=== PATIENT | male | born 1945 | race Caucasian/White ===

== ENCOUNTER 2016-08-15 09:46 | Outpatient (CLI) | payer BC ==
[2016-08-15 11:00] LABS: Hemoglobin A1c 5.9 % (4.0-6.0)
[2016-08-15 11:06] LABS: ALT (SGPT) 26 U/L (0-55); AST (SGOT) 18 U/L (5-34); Alkaline Phosphatase 53 U/L (40-150); Anion Gap 12 mmol/L (10-20); BUN (Urea Nitrogen) 20 mg/dL (8.4-25.7); Bilirubin, Total 0.6 mg/dL (0.2-1.2); Calc. Creatinine Clearance 0 mL/min (70-130); Calcium 8.9 mg/dL (7.8-10.44); Carbon Dioxide 30 mmol/L (23-31); Chloride 107 mmol/L (98-107); Estimated GFR-MDRD 65; Globulin 2.8 g/dL (2.4-3.5); LDL Cholesterol, Calculated 106 mg/dL; Protein, Total 6.9 g/dL (5.8-8.1)
[2016-08-15 12:34] LABS: Albumin - Urine 10 mg/L (< 20 mg/L); Albumin/Creatinine Ratio LESS THAN 30 mg/g (< 30 mg/g); Creatinine, Urine 300 mg/dL (10-300mg/dL)
== END 2016-08-15 09:47 | disposition home or self-care (01) ==
LOC: NAV LAB 09:46
PROVIDERS: ATTEND Family Medicine
DX: E78.5 Hyperlipidemia, unspecified (principal); E11.9 Type 2 diabetes mellitus without complications; E03.9 Hypothyroidism, unspecified
CPT/HCPCS: 36415; 80053; 80061; 82044; 82570; 83036; 84443

== ENCOUNTER 2016-12-02 10:47 | Outpatient (CLI) | payer BC ==
[2016-12-02 11:37] LABS: ALT (SGPT) 25 U/L (8-55); AST (SGOT) 18 U/L (5-34); Alkaline Phosphatase 45 U/L (40-150); Anion Gap 16 mmol/L (10-20); BUN (Urea Nitrogen) 26 mg/dL (8.4-25.7); Bilirubin, Total 0.7 mg/dL (0.2-1.2); Calc. Creatinine Clearance 0 mL/min (70-130); Calcium 9.1 mg/dL (7.8-10.44); Carbon Dioxide 27 mmol/L (23-31); Chloride 106 mmol/L (98-107); Cholesterol 160 mg/dl (< 200 Desired); Estimated GFR-MDRD 61; Globulin 2.4 g/dL (2.4-3.5); Glucose 126 mg/dL (83-110); Potassium 4.6 mmol/L (3.5-5.1); Protein, Total 6.4 g/dL (5.8-8.1); Sodium 144 mmol/L (136-145); Triglycerides 80 mg/dL (Less than 150)
[2016-12-02 11:38] LABS: Cardiac Risk 4.3 (Less than 4.5); HDL Cholesterol 37 mg/dL (>60 Neg Risk); LDL Cholesterol, Calculated 107 mg/dL
[2016-12-02 19:05] LABS: Creatinine, Urine 99.29 mg/dL (63-166); Microalbumin Urine Less than 1.0 mg/dL (0.5-50.0); Microalbumin/Creat Ratio 10.1 mg/g (Less than 30)
== END 2016-12-02 10:48 | disposition home or self-care (01) ==
LOC: NAV LAB 10:47
PROVIDERS: ATTEND Internal Medicine
DX: E78.5 Hyperlipidemia, unspecified (principal); E11.9 Type 2 diabetes mellitus without complications
CPT/HCPCS: 36415; 80053; 80061; 82043; 83036

== ENCOUNTER 2017-05-07 18:19 | Inpatient (IN) | payer MEDICARE, BC ==
[2017-05-07] MEDS ORDERED: guaiFENesin 100 MG/5 ML UDCUP PO PRN (20:38)
[2017-05-07] MEDS ORDERED: HumaLOG 300 UNITS/3 ML VIAL SC SCH (21:00)
[2017-05-07] MEDS ORDERED: (Fluticasone Propionate [Flovent Diskus] 50 MCG) INH SCH (21:00)
[2017-05-07] MEDS ORDERED: HumaLOG 300 UNITS/3 ML VIAL SC PRN (21:11)
[2017-05-07] MEDS ORDERED: Dextrose 5% in Water 1,000 ML IV PRN (21:11)
[2017-05-07] MEDS ORDERED: Dextrose 50% Abboject 50 ML SYRINGE IVP PRN (21:12)
[2017-05-07] MEDS: Melatonin 3 MG TAB PO SCH (21:46)
[2017-05-07] MEDS: Lorazepam 1 MG TAB PO SCH (21:46)
[2017-05-07] MEDS: Famotidine 20 MG TAB PO SCH (21:46)
[2017-05-07] MEDS: Atorvastatin Calcium 10 MG TAB PO SCH (21:46)
[2017-05-08] MEDS: Levothyroxine Sodium 50 MCG TAB PO SCH (05:08)
[2017-05-08 05:11] LABS: #Basophils 0.1 thou/uL (0.0-0.2); #Eosinphils 0.5 thou/uL (0.0-0.7); #Lymphocytes 1.5 thou/uL (1.20-3.40); #Monocytes 0.8 thou/uL (0.11-0.59); %Basophils 0.7 % (0.0-1.0); %Lymphocytes 15.4 % (21.0-51.0); %Neutrophils 70.9 % (42.0-75.0); Hemoglobin 11.2 g/dL (14.0-18.0); Mean Corpuscular HGB CONC 31.8 g/dL (32.0-36.0); Mean Corpuscular Hemoglobin 31.2 pg (27.0-31.0); Mean Corpuscular Volume 98.2 fl (80.0-94.0); Mean Platelet Volume 6.7 fL (7.4-10.4); Platelet Count 262 thou/uL (130-400); RBC Distribution Width 12.4 % (11.5-14.5); Red Blood Cell (RBC) Count 3.59 mill/uL (4.70-6.10); White Blood Cell (WBC) Count 9.9 thou/uL (4.8-10.8)
[2017-05-08 05:29] LABS: BUN (Urea Nitrogen) 14 mg/dL (8.4-25.7); Calc. Creatinine Clearance 123 mL/min (70-130); Calcium 9.1 mg/dL (7.8-10.44); Estimated GFR-MDRD 77; Glucose 129 mg/dL (83-110)
[2017-05-08 05:33] LABS: Chloride 97 mmol/L (98-107); Potassium 3.9 mmol/L (3.5-5.1); Sodium 144 mmol/L (136-145)
[2017-05-08 06:26] LABS: Carbon Dioxide 35 mmol/L (23-31)
[2017-05-08 06:31] LABS: Anion Gap 14 mmol/L (10-20)
[2017-05-08] MEDS: metFORMIN 500 MG TAB PO SCH ×2 (09:16→17:26)
[2017-05-08] MEDS: Alogliptin Benzoate 25 MG TABLET PO SCH (09:16)
[2017-05-08] MEDS: Aspirin 81 mg Enteric Coated Tablet PO SCH (09:17)
[2017-05-08] MEDS: Multivitamin W/ Minerals 1 TAB PO SCH (09:18)
[2017-05-08] MEDS: Furosemide 40 MG TAB PO SCH (09:18)
[2017-05-08] MEDS: Finasteride 5 MG TAB PO SCH (09:18)
[2017-05-08] MEDS: Famotidine 20 MG TAB PO SCH ×2 (09:18→20:30)
[2017-05-08] MEDS: Enoxaparin Sodium 40 MG/0.4 ML SYRINGE SC SCH (09:19)
--- NOTE | 2017-05-08 09:24 | HP ---
CHIEF COMPLAINT: Status post coronary artery bypass grafting for physical therapy. BRIEF HISTORY: This is a 71-year-old male who was admitted to [facility] and underwent coronary artery bypass grafting x4 by Dr. Kiran on 04/29/2017. The patient did we ll and post-surgery was noticed to have hypercapnic respiratory failure during the weaning process. Chest x-ray showed pulmonary edema. He was treated with IV diuretics and managed by mechanical pipe tilation by pulmonary. He improved and was extubated. He was also noticed to have paroxysmal atria l fibrillation with RVR which was managed with amiodarone and currently he is in sinus rhythm. He h as been transferred here for therapy. Currently, he denies any chest pain or shortness of breath. He is on 2 liters of oxygen. He denies any fever or chills. He denies any paroxysmal nocturnal dys pnea or orthopnea. PAST MEDICAL HISTORY: 1. Coronary artery disease with recent coronary artery bypass grafting x4. 2. Dyslipidemia. 3. Hypertension. 4. Diabetes mellitus type 2. 5. Hypothyroidism. 6. Benign prostatic hypertrophy. PAST SURGICAL HISTORY: 1. Appendectomy. 2. Tonsillectomy. 3. Bilateral cataract extraction. 4. History of back surgery. 5. Knee surgery. 6. Cardiac catheterization. 7. Recent coronary artery bypass grafting. FAMILY HISTORY: Noncontributory to current admission. PSYCHOSOCIAL HISTORY: He quit smoking 35 years ago. Social alcohol intake, no IV drug abuse. He w as fairly active and independent. ALLERGIES GUAIFENESIN. CURRENT MEDICATIONS: He has been admitted here with the following medications: 1. Alogliptin 12.5 mg daily. 2. Amiodarone 200 mg b.i.d. 3. Ecotrin 81 mg daily. 4. Lipitor 10 mg daily. 5. Lovenox 40 mg daily. 6. Pepcid 20 mg b.i.d. 7. Finasteride 5 mg daily. 8. Lasix 40 mg daily. 9. Levothyroxine 50 mcg daily. 10. Lorazepam 1 mg daily. 11. Melatonin 3 mg at bedtime. 12. Metformin 500 mg b.i.d. 13. Asmanex inhaler 1 puff b.i.d. 14. Tramadol 50 mg q.6h. p.r.n. 15. He is also on guaifenesin and I will check with him as to the reaction. REVIEW OF SYSTEMS: CARDIOVASCULAR: Denies any chest pain, shortness of breath, palpitations, paroxysmal nocturnal dysp lurdes, orthopnea, pedal edema. RESPIRATORY: Denies any chronic cough, expectoration or pleuritic type chest pain. GASTROINTESTINAL: Denies any nausea, vomiting, diarrhea, constipation, hematemesis, melena, hematoc hezia. GENITOURINARY: Denies any frequency, urgency, dysuria or hematuria. LUBRICATION SUPERVISOR: No focal numbness, weakness, fainting spells. HEENT: No difficulty with speech, vision, hearing or swallowing. PHYSICAL EXAMINATION: GENERAL: Pleasant 71-year-old male resting comfortably in no acute distress. He responds appropriately to questions. He is alert, awake, and oriented x3. VITAL SIGNS: He is afebrile, heart rate 72, respirations 22, blood pressure 95/55, oxygen saturatio n is 94% on 2 liters. HEENT: Normocephalic, atraumatic. Pupils equal and reactive to light and accommodation. NECK: No JVD, thyromegaly, cervical adenopathy, throat exudates or carotid bruits. CARDIOVASCULAR: S1, S2 plus, rate and rhythm regular. Sternal incision is healing. RESPIRATORY: Normal vesicular breath sounds with decreased air entry in the bases, occasional crack les in the bases. ABDOMEN: Soft, nontender, bowel sounds heard in all quadrants. EXTREMITIES: Without cyanosis or clubbing. Trace edema. Peripheral pulses are palpable. LUBRICATION SUPERVISOR: Grossly nonfocal. LABORATORY VALUES: Done this morning shows a white count of 9.9, H\T\H is 11.2 and 35.3, sodium 144 , potassium 3.9, BUN and creatinine is 14 and 0.96. BNP is 286.8, blood sugar is 158. IMPRESSION: 1. Coronary artery disease status post coronary artery bypass graft x4. 2. Paroxysmal atrial fibrillation. 3. Diabetes mellitus type 2. 4. Hypertension. 5. Dyslipidemia. 6. Hypothyroidism. 7. Benign prostatic hypertrophy. PLAN: 1. Continue current medications. 2. Deep venous thrombosis prophylaxis with Lovenox. 3. Sternal incision care. 4. 1800 calorie heart healthy diet. 5. Accu-Cheks with sliding scale coverage. 6. Decubitus precautions. 7. Physical therapy evaluation and treat. 8. Routine laboratory values. 9. Monitor his heart rate and for any decompensation of heart failure. 10. Titrate oxygen. 11. Discussed with patient in detail and all questions answered.
[2017-05-08] MEDS: HumaLOG 300 UNITS/3 ML VIAL SC PRN (12:03)
[2017-05-08] MEDS: Mometasone Furoate 120 PUFF 220 MCG INH SCH (17:27)
[2017-05-08] MEDS: Atorvastatin Calcium 10 MG TAB PO SCH (20:29)
[2017-05-08] MEDS: Melatonin 3 MG TAB PO SCH (20:29)
[2017-05-08] MEDS: Lorazepam 1 MG TAB PO SCH (20:30)
[2017-05-08] MEDS ORDERED: FLU VACC QS2017-18 36 mo. & older 0.5 ML SYRINGE IM ONE (21:00)
[2017-05-09] MEDS: Levothyroxine Sodium 50 MCG TAB PO SCH (05:42)
[2017-05-09] MEDS: Mometasone Furoate 120 PUFF 220 MCG INH SCH ×2 (05:42→18:12)
[2017-05-09] MEDS: metFORMIN 500 MG TAB PO SCH ×2 (08:33→17:03)
[2017-05-09] MEDS: Finasteride 5 MG TAB PO SCH (08:33)
[2017-05-09] MEDS: Furosemide 40 MG TAB PO SCH (08:33)
[2017-05-09] MEDS: Famotidine 20 MG TAB PO SCH ×2 (08:33→21:39)
[2017-05-09] MEDS: Multivitamin W/ Minerals 1 TAB PO SCH (08:34)
[2017-05-09] MEDS: Alogliptin Benzoate 25 MG TABLET PO SCH (08:34)
[2017-05-09] MEDS: Aspirin 81 mg Enteric Coated Tablet PO SCH (08:34)
[2017-05-09] MEDS: Enoxaparin Sodium 40 MG/0.4 ML SYRINGE SC SCH (08:34)
--- NOTE | 2017-05-09 10:06 | PRG ---
DATE OF SERVICE: 05/09/2017 SUBJECTIVE: Mr. Drake is up, in the restroom shaving. He is still on 2 liters of oxygen. He denies any chest pain or shortness of breath. He states he slept great. Discussed with nursing and no co ncerns. OBJECTIVE: VITAL SIGNS: He is afebrile, heart rate 69, respirations 16, oxygen saturation is 96%, blood pressu re is 117/69. CARDIOVASCULAR SYSTEM: S1, S2 plus. RESPIRATORY SYSTEM: Normal vesicular breath sounds. ABDOMEN: Soft, nontender, bowel sounds heard in all quadrants. EXTREMITIES: Without cyanosis or clubbing. Trace edema. SKIN: Sternal incision is healing. His maculopapular rash in the back is pretty much scabbed over and resolving. The patient did confirm that he was allergic to guaifenesin, and so his guaifenesin prescription was removed from his medication list. IMPRESSION: 1. Coronary artery disease, status post coronary artery bypass graft. 2. Dyslipidemia. 3. Hypertension. 4. Diabetes mellitus, type 2. His blood sugars have been 197, 94, 136, and 109. 5. Hypothyroidism. 6. Benign prostatic hypertrophy. PLAN: 1. Continue current medications. 2. Titrate oxygen. 3. Physical therapy. 4. DVT and stress ulcer prophylaxis. 5. Right decubitus precautions. 6. Routine laboratory values. 7. A 1800 calorie heart healthy diet. Discussed with the patient in detail and all questions answered.
[2017-05-09] MEDS: traMADol HCl 50 MG TAB PO PRN (14:42)
[2017-05-09] MEDS: Lorazepam 1 MG TAB PO SCH (21:39)
[2017-05-09] MEDS: Atorvastatin Calcium 10 MG TAB PO SCH (21:39)
[2017-05-09] MEDS: Melatonin 3 MG TAB PO SCH (21:39)
[2017-05-10 05:06] LABS: #Basophils 0.1 thou/uL (0.0-0.2); #Eosinphils 0.5 thou/uL (0.0-0.7); #Monocytes 0.8 thou/uL (0.11-0.59); #Neutrophils 7.9 thou/uL (1.40-6.50); %Basophils 0.6 % (0.0-1.0); %Eosinophils 4.4 % (0.0-10.0); %Lymphocytes 14.9 % (21.0-51.0); %Monocytes 7.1 % (0.0-10.0); Hemoglobin 11.4 g/dL (14.0-18.0); Mean Corpuscular HGB CONC 31.8 g/dL (32.0-36.0); Mean Corpuscular Hemoglobin 31.6 pg (27.0-31.0); Mean Corpuscular Volume 99.4 fl (80.0-94.0); Mean Platelet Volume 5.5 fL (7.4-10.4); Platelet Count 247 thou/uL (130-400); RBC Distribution Width 12.7 % (11.5-14.5); Red Blood Cell (RBC) Count 3.61 mill/uL (4.70-6.10); White Blood Cell (WBC) Count 10.8 thou/uL (4.8-10.8)
[2017-05-10 05:09] LABS: #Lymphocytes 1.6 thou/uL (1.20-3.40)
[2017-05-10 05:10] LABS: PLT Morphology Comment Appears Adequate; RBC Morphology Normal
[2017-05-10 05:24] LABS: BUN (Urea Nitrogen) 13 mg/dL (8.4-25.7); Calc. Creatinine Clearance 112 mL/min (70-130); Calcium 9.1 mg/dL (7.8-10.44); Estimated GFR-MDRD 69; Glucose 118 mg/dL (83-110)
[2017-05-10 05:28] LABS: Chloride 96 mmol/L (98-107); Potassium 4.4 mmol/L (3.5-5.1); Sodium 144 mmol/L (136-145)
[2017-05-10 05:49] LABS: Carbon Dioxide 38 mmol/L (23-31)
[2017-05-10 05:55] LABS: Anion Gap 14 mmol/L (10-20)
[2017-05-10] MEDS: Mometasone Furoate 120 PUFF 220 MCG INH SCH ×2 (05:59→17:56)
[2017-05-10] MEDS: Levothyroxine Sodium 50 MCG TAB PO SCH (06:00)
[2017-05-10] MEDS: Famotidine 20 MG TAB PO SCH ×2 (08:41→21:22)
[2017-05-10] MEDS: Multivitamin W/ Minerals 1 TAB PO SCH (08:41)
[2017-05-10] MEDS: metFORMIN 500 MG TAB PO SCH ×2 (08:41→17:55)
[2017-05-10] MEDS: Finasteride 5 MG TAB PO SCH (08:42)
[2017-05-10] MEDS: Alogliptin Benzoate 25 MG TABLET PO SCH (08:42)
[2017-05-10] MEDS: Furosemide 40 MG TAB PO SCH (08:42)
[2017-05-10] MEDS: Aspirin 81 mg Enteric Coated Tablet PO SCH (08:44)
[2017-05-10] MEDS: Enoxaparin Sodium 40 MG/0.4 ML SYRINGE SC SCH (08:44)
--- NOTE | 2017-05-10 15:59 | PRG ---
DATE OF SERVICE: 05/10/2017 SUBJECTIVE: Mr. Drake is doing well. Denies any complaints, resting comfortably. Discussed with nu rsing and no concerns. OBJECTIVE: VITAL SIGNS: He is afebrile, heart rate 72, respiration is 18, oxygen saturation 92% on 2 liters, b lood pressure 134/76. HEENT: Normocephalic, atraumatic. Pupils equal and reactive to light and accommodation. No JVD, t hyromegaly, cervical adenopathy, throat exudates or carotid bruits. CARDIOVASCULAR SYSTEM: S1, S2, rate and rhythm regular. RESPIRATORY SYSTEM: Normal vesicular breath sounds heard in all lung jacinto. Sternal Incision is h ealthy. ABDOMEN: Soft, nontender, bowel sounds heard in all quadrants. EXTREMITIES: Without cyanosis or clubbing. LABORATORY VALUES: White count is 10.8, H\T\H is 11.4 and 35.9. Sodium 144, potassium 4.4, BUN and creatinine is 13 and 1.06. Blood sugars are 109, 141, 118 and 156. IMPRESSION: 1. Coronary artery disease status post coronary artery bypass graft. 2. Diabetes mellitus type 2. 3. Hypertension. 4. Dyslipidemia. 5. Hypothyroidism. 6. Benign prostatic hypertrophy. PLAN: 1. Titrate oxygen to incentive spirometry. 2. Physical therapy. 3. Nutritional support. 4. DVT and stress ulcer prophylaxis. 5. Decubitus precautions. 6. Routine laboratory values.
[2017-05-10] MEDS: HumaLOG 300 UNITS/3 ML VIAL SC PRN (17:59)
[2017-05-10] MEDS: Melatonin 3 MG TAB PO SCH (21:22)
[2017-05-10] MEDS: Atorvastatin Calcium 10 MG TAB PO SCH (21:22)
[2017-05-10] MEDS: Lorazepam 1 MG TAB PO SCH (21:23)
[2017-05-11] MEDS: Mometasone Furoate 120 PUFF 220 MCG INH SCH ×2 (06:07→18:20)
[2017-05-11] MEDS: Levothyroxine Sodium 50 MCG TAB PO SCH (06:13)
[2017-05-11] MEDS: Multivitamin W/ Minerals 1 TAB PO SCH (08:42)
[2017-05-11] MEDS: Enoxaparin Sodium 40 MG/0.4 ML SYRINGE SC SCH (08:42)
[2017-05-11] MEDS: Finasteride 5 MG TAB PO SCH (08:42)
[2017-05-11] MEDS: Alogliptin Benzoate 25 MG TABLET PO SCH (08:42)
[2017-05-11] MEDS: Furosemide 40 MG TAB PO SCH (08:43)
[2017-05-11] MEDS: Aspirin 81 mg Enteric Coated Tablet PO SCH (08:43)
[2017-05-11] MEDS: Famotidine 20 MG TAB PO SCH ×2 (08:43→21:23)
[2017-05-11] MEDS: metFORMIN 500 MG TAB PO SCH ×2 (08:43→17:20)
--- NOTE | 2017-05-11 13:41 | PRG ---
DATE OF SERVICE: 05/11/2017 SUBJECTIVE: Mr. Drake is doing well. Denies any complaints except he is having some difficulty with urinary incontinence. He apparently has an extensive history of BPH, requiring transurethral needl e ablation and balanitis and urethral strictures requiring surgical treatment. He denies any dysuri a or hematuria. Denies any fever or chills. He is still taking his finasteride. He also was not d oing very good with incentive spirometry and a reinforced to him the need for him to do well to prev ent atelectasis and hypoxemia and reduce his risk for pneumonitis. I advised him that I am going to get a chest x-ray and BNP as well just to be safe along with a urine culture. He did tolerate ther apy this morning. OBJECTIVE: VITAL SIGNS: He is afebrile, heart rate 71, respirations 20, oxygen saturation 100% on 3 liters. C urrently, he is actually off his oxygen. Blood pressure is 117/68. CARDIOVASCULAR: S1, S2 plus. RESPIRATORY: Normal vesicular breath sounds with decreased air entry in the bases. ABDOMEN: Soft, obese, nontender, bowel sounds heard in all quadrants. EXTREMITIES: Without cyanosis or clubbing. Trace edema. IMPRESSION: 1. Coronary artery disease, status post coronary artery bypass graft. 2. Diabetes mellitus type 2. 3. Hypertension. 4. Dyslipidemia. 5. Benign prostatic hypertrophy. 6. Hypoxemia. 7. Improving deconditioning. 8. Hypothyroidism. PLAN: 1. Chest x-ray, BNP and urine culture now. 2. Continue incentive spirometry. 3. Monitor oxygen saturation and titrate oxygen. 4. DVT and stress ulcer prophylaxis. 5. Decubitus precautions. 6. Heart healthy diet. 7. Physical therapy. 8. Discussed with patient in detail and all questions answered.
--- NOTE | 2017-05-11 19:32 | RAD ---
PA AND LATERAL VIEWS OF CHEST: Date: 05/11/17 HISTORY: Coronary artery disease, recent CABG 2 weeks ago, hypoxia. FINDINGS/IMPRESSION: There are changes of median sternotomy. The heart size is borderline. Small bilateral pleural effusi ons are seen with adjacent atelectatic changes. No pneumothoraces or lobar consolidation identified. POS: [facility]
[2017-05-11] MEDS: Melatonin 3 MG TAB PO SCH (21:23)
[2017-05-11] MEDS: Lorazepam 1 MG TAB PO SCH (21:23)
[2017-05-11] MEDS: Atorvastatin Calcium 10 MG TAB PO SCH (21:24)
[2017-05-12] MEDS: Mometasone Furoate 120 PUFF 220 MCG INH SCH ×2 (05:36→18:20)
[2017-05-12] MEDS: Levothyroxine Sodium 50 MCG TAB PO SCH (05:37)
[2017-05-12] MEDS: Enoxaparin Sodium 40 MG/0.4 ML SYRINGE SC SCH (08:23)
[2017-05-12] MEDS: Multivitamin W/ Minerals 1 TAB PO SCH (08:24)
[2017-05-12] MEDS: Finasteride 5 MG TAB PO SCH (08:24)
[2017-05-12] MEDS: metFORMIN 500 MG TAB PO SCH ×2 (08:24→17:20)
[2017-05-12] MEDS: Aspirin 81 mg Enteric Coated Tablet PO SCH (08:24)
[2017-05-12] MEDS: Famotidine 20 MG TAB PO SCH ×2 (08:24→21:03)
[2017-05-12] MEDS: Furosemide 40 MG TAB PO SCH (08:24)
[2017-05-12] MEDS: Docusate 100 MG CAP PO SCH ×2 (08:24→21:03)
[2017-05-12] MEDS: Alogliptin Benzoate 25 MG TABLET PO SCH (08:25)
--- NOTE | 2017-05-12 17:43 | PRG ---
DATE OF SERVICE: 05/12/2017 SUBJECTIVE: Mr. Drake is doing well. He slept better. He is concerned about the swelling in his ri ght leg. He denies any fever or chills. Denies any pain, denies any nausea or vomiting. OBJECTIVE: VITAL SIGNS: He is afebrile, heart rate is 67, respirations are 16, oxygen saturation is 96% on 2 l iters, blood pressure is 129/72. CARDIOVASCULAR: S1, S2 plus. RESPIRATORY: Normal vesicular breath sounds. ABDOMEN: Soft, nontender, bowel sounds heard in all quadrants. EXTREMITIES: Without cyanosis, clubbing. 1+ edema. Left lower extremity that is where the vein lubin rvesting was done. LABORATORY DATA: Urine culture is pending. IMPRESSION: 1. Coronary artery disease, status post coronary artery bypass graft. 2. Diabetes mellitus, type 2. 3. Anemia of chronic disease. 4. Right lower extremity swelling due to vein harvesting. 5. History of benign prostatic hypertrophy and urethral strictures. 6. Hypoxemia, likely due to atelectasis. PLAN: 1. Continue current medications. 2. Reinforced the need for incentive spirometry. 3. DVT and stress ulcer prophylaxis. 4. Decubitus precautions. 5. Await urine culture. 6. Continue physical therapy and titrate oxygen. 7. Discussed with the patient in detail and all questions answered.
[2017-05-12] MEDS: Lorazepam 1 MG TAB PO SCH (21:02)
[2017-05-12] MEDS: Atorvastatin Calcium 10 MG TAB PO SCH (21:02)
[2017-05-12] MEDS: Melatonin 3 MG TAB PO SCH (21:04)
[2017-05-13] MEDS: traMADol HCl 50 MG TAB PO PRN ×2 (00:15→20:58)
[2017-05-13] MEDS: Levothyroxine Sodium 50 MCG TAB PO SCH (06:02)
[2017-05-13] MEDS: Mometasone Furoate 120 PUFF 220 MCG INH SCH ×2 (06:02→17:43)
[2017-05-13] MEDS: Enoxaparin Sodium 40 MG/0.4 ML SYRINGE SC SCH (08:16)
[2017-05-13] MEDS: metFORMIN 500 MG TAB PO SCH ×2 (08:17→17:36)
[2017-05-13] MEDS: Alogliptin Benzoate 25 MG TABLET PO SCH (08:17)
[2017-05-13] MEDS: Furosemide 40 MG TAB PO SCH (08:18)
[2017-05-13] MEDS: Aspirin 81 mg Enteric Coated Tablet PO SCH (08:18)
[2017-05-13] MEDS: Docusate 100 MG CAP PO SCH ×2 (08:18→20:58)
[2017-05-13] MEDS: Multivitamin W/ Minerals 1 TAB PO SCH (08:18)
[2017-05-13] MEDS: Finasteride 5 MG TAB PO SCH (08:18)
[2017-05-13] MEDS: Famotidine 20 MG TAB PO SCH ×2 (08:18→20:59)
--- NOTE | 2017-05-13 13:29 | PRG ---
DATE OF SERVICE: 05/13/2017 SUBJECTIVE: Mr. Drake is doing well. Denies any complaints, resting comfortably, tolerating his ther apy. He is getting stronger. His shortness of breath is improving. He is using incentive spiromete r. OBJECTIVE: VITAL SIGNS: He is afebrile, heart rate 73, respirations 24, oxygen saturation 97% on 2 liters, bloo d pressure 151/84. CARDIOVASCULAR: S1, S2 plus. RESPIRATORY: Normal vesicular breath sounds. ABDOMEN: Soft, nontender, bowel sounds heard in all quadrants, obese. EXTREMITIES: Without cyanosis, clubbing. 1+ edema. Trace erythema around his vein harvest site in the right leg. LABORATORY VALUES: Blood sugars are 140, 115, 116 and 97. IMPRESSION: 1. Coronary artery disease status post coronary artery bypass graft. 2. Hypoxemia, slowly improving. 3. Improving deconditioning. 4. Diabetes mellitus type 2. 5. Hypertension. PLAN: 1. Recheck routine laboratory values tomorrow. 2. Continue to monitor heart rate. 3. DVT and stress ulcer prophylaxis. 4. Decubitus precautions. 5. Monitor incision. 6. Accu-Cheks with sliding scale coverage. 7. Titrate oxygen. 8. Physical therapy. 9. Discussed with patient in detail and all questions answered.
[2017-05-13] MEDS: Melatonin 3 MG TAB PO SCH (20:58)
[2017-05-13] MEDS: Atorvastatin Calcium 10 MG TAB PO SCH (20:58)
[2017-05-13] MEDS: Lorazepam 1 MG TAB PO SCH (20:59)
[2017-05-14] MEDS: Levothyroxine Sodium 50 MCG TAB PO SCH (05:20)
[2017-05-14] MEDS: Mometasone Furoate 120 PUFF 220 MCG INH SCH ×2 (05:21→17:29)
[2017-05-14 06:04] LABS: #Basophils 0.1 thou/uL (0.0-0.2); #Eosinphils 0.4 thou/uL (0.0-0.7); #Lymphocytes 1.8 thou/uL (1.20-3.40); #Monocytes 0.8 thou/uL (0.11-0.59); #Neutrophils 7.5 thou/uL (1.40-6.50); %Basophils 0.9 % (0.0-1.0); %Eosinophils 3.6 % (0.0-10.0); %Lymphocytes 16.7 % (21.0-51.0); %Monocytes 7.5 % (0.0-10.0); %Neutrophils 71.3 % (42.0-75.0); Hemoglobin 11.7 g/dL (14.0-18.0); Mean Corpuscular HGB CONC 30.7 g/dL (32.0-36.0); Mean Corpuscular Hemoglobin 30.8 pg (27.0-31.0); Platelet Count 209 thou/uL (130-400); RBC Distribution Width 12.7 % (11.5-14.5); White Blood Cell (WBC) Count 10.5 thou/uL (4.8-10.8)
[2017-05-14 06:18] LABS: Anion Gap 11 mmol/L (10-20); BUN (Urea Nitrogen) 11 mg/dL (8.4-25.7); Calc. Creatinine Clearance 136 mL/min (70-130); Calcium 8.6 mg/dL (7.8-10.44); Carbon Dioxide 37 mmol/L (23-31); Chloride 96 mmol/L (98-107); Estimated GFR-MDRD 86; Glucose 128 mg/dL (83-110); Potassium 3.7 mmol/L (3.5-5.1); Sodium 140 mmol/L (136-145)
[2017-05-14] MEDS: traMADol HCl 50 MG TAB PO PRN (08:25)
[2017-05-14] MEDS: Famotidine 20 MG TAB PO SCH ×2 (08:26→21:09)
[2017-05-14] MEDS: Multivitamin W/ Minerals 1 TAB PO SCH (08:26)
[2017-05-14] MEDS: Furosemide 40 MG TAB PO SCH (08:26)
[2017-05-14] MEDS: Finasteride 5 MG TAB PO SCH (08:26)
[2017-05-14] MEDS: Alogliptin Benzoate 25 MG TABLET PO SCH (08:27)
[2017-05-14] MEDS: Aspirin 81 mg Enteric Coated Tablet PO SCH (08:27)
[2017-05-14] MEDS: Docusate 100 MG CAP PO SCH ×2 (08:27→21:10)
[2017-05-14] MEDS: metFORMIN 500 MG TAB PO SCH ×2 (08:28→17:29)
[2017-05-14] MEDS: Enoxaparin Sodium 40 MG/0.4 ML SYRINGE SC SCH (08:33)
--- NOTE | 2017-05-14 12:55 | PRG ---
DATE OF SERVICE: 05/14/2017 SUBJECTIVE: Mr. Drake is doing better. He states that he is breathing easier and he had a good night sleep last night. Denies any chest pain or shortness of breath. OBJECTIVE: VITAL SIGNS: He is afebrile, heart rate is 71, respirations 20, oxygen saturation 96% on 1 liter, bl ood pressure 130/80. CARDIOVASCULAR: S1, S2 plus. RESPIRATORY: Normal vesicular breath sounds. ABDOMEN: Soft, obese, nontender, bowel sounds heard in all quadrants. EXTREMITIES: Without cyanosis, clubbing. 1+ edema. Vein harvest site erythema is improved. LABORATORY VALUES: Sodium 140, potassium 3.7, BUN and creatinine is 11 and 0.87, blood sugar is 128, 118 125 and 119. BNP slightly elevated at 238. IMPRESSION: 1. Coronary artery disease status post coronary artery bypass graft. 2. Diabetes mellitus type 2. 3. Hypertension. 4. Dyslipidemia. 5. Hypothyroidism. 6. Benign prostatic hypertrophy. PLAN: 1. Continue current medications. 2. Continue to titrate oxygen. 3. Continue Lasix. 4. DVT and stress ulcer prophylaxis. 5. Decubitus precautions. 6. Nutritional support. 7. Physical therapy. 8. Routine laboratory values. 9. Discussed with patient in detail and all questions answered.
[2017-05-14] MEDS: Melatonin 3 MG TAB PO SCH (21:09)
[2017-05-14] MEDS: Atorvastatin Calcium 10 MG TAB PO SCH (21:10)
[2017-05-14] MEDS: Lorazepam 1 MG TAB PO SCH (21:10)
[2017-05-15] MEDS: Mometasone Furoate 120 PUFF 220 MCG INH SCH ×2 (06:10→18:09)
[2017-05-15] MEDS: Levothyroxine Sodium 50 MCG TAB PO SCH (06:10)
[2017-05-15] MEDS: Enoxaparin Sodium 40 MG/0.4 ML SYRINGE SC SCH (08:53)
[2017-05-15] MEDS: Furosemide 40 MG TAB PO SCH (08:53)
[2017-05-15] MEDS: Aspirin 81 mg Enteric Coated Tablet PO SCH (08:54)
[2017-05-15] MEDS: Famotidine 20 MG TAB PO SCH ×2 (08:54→21:35)
[2017-05-15] MEDS: metFORMIN 500 MG TAB PO SCH ×2 (08:54→16:57)
[2017-05-15] MEDS: Finasteride 5 MG TAB PO SCH (08:54)
[2017-05-15] MEDS: Alogliptin Benzoate 25 MG TABLET PO SCH (08:56)
[2017-05-15] MEDS: Multivitamin W/ Minerals 1 TAB PO SCH (08:56)
[2017-05-15] MEDS: Docusate 100 MG CAP PO SCH ×2 (08:56→21:35)
--- NOTE | 2017-05-15 09:24 | PRG ---
DATE OF SERVICE: 05/15/2017 SUBJECTIVE: Mr. Drake is doing well. He states that he had a great night last night. Denies any com plaints. No chest pain or shortness of breath. Discussed with nursing and no concerns. OBJECTIVE: VITAL SIGNS: He is afebrile, heart rate 74, respirations 18, oxygen saturation 94% on 2 liters, bloo d pressure is 123/65. CARDIOVASCULAR SYSTEM: S1, S2 plus. RESPIRATORY SYSTEM: Normal vesicular breath sounds with decreased air entry in the bases. ABDOMEN: Soft, obese, nontender, bowel sounds heard in all quadrants. EXTREMITIES: Still with 1+ edema. Vein graft incision site is healthy. IMPRESSION: 1. Coronary artery disease status post coronary artery bypass graft. 2. Diabetes mellitus type 2. 3. Hypertension. 4. Dyslipidemia. 5. Hypoxemia. PLAN: 1. Continue current medications. 2. Nutritional support. 3. DVT and stress ulcer prophylaxis. 4. Decubitus precautions. 5. Titrate oxygen. 6. Continue physical therapy. 7. Incentive spirometry.
[2017-05-15] MEDS: Atorvastatin Calcium 10 MG TAB PO SCH (21:35)
[2017-05-15] MEDS: Melatonin 3 MG TAB PO SCH (21:35)
[2017-05-15] MEDS: Lorazepam 1 MG TAB PO SCH (21:38)
[2017-05-16] MEDS: traMADol HCl 50 MG TAB PO PRN (01:45)
[2017-05-16] MEDS: Mometasone Furoate 120 PUFF 220 MCG INH SCH ×2 (06:14→18:18)
[2017-05-16] MEDS: Levothyroxine Sodium 50 MCG TAB PO SCH (06:14)
[2017-05-16] MEDS: Alogliptin Benzoate 25 MG TABLET PO SCH (08:59)
[2017-05-16] MEDS: Multivitamin W/ Minerals 1 TAB PO SCH (08:59)
[2017-05-16] MEDS: Furosemide 40 MG TAB PO SCH (08:59)
[2017-05-16] MEDS: Famotidine 20 MG TAB PO SCH ×2 (08:59→22:15)
[2017-05-16] MEDS: Docusate 100 MG CAP PO SCH ×2 (08:59→22:14)
[2017-05-16] MEDS: Aspirin 81 mg Enteric Coated Tablet PO SCH (08:59)
[2017-05-16] MEDS: Enoxaparin Sodium 40 MG/0.4 ML SYRINGE SC SCH (09:00)
[2017-05-16] MEDS: Finasteride 5 MG TAB PO SCH (09:00)
[2017-05-16] MEDS: metFORMIN 500 MG TAB PO SCH ×2 (09:00→17:18)
[2017-05-16] MEDS: Melatonin 3 MG TAB PO SCH (22:16)
[2017-05-16] MEDS: Lorazepam 1 MG TAB PO SCH (22:17)
[2017-05-16] MEDS: Atorvastatin Calcium 10 MG TAB PO SCH (22:17)
[2017-05-17] MEDS: Levothyroxine Sodium 50 MCG TAB PO SCH (05:55)
[2017-05-17] MEDS: Mometasone Furoate 120 PUFF 220 MCG INH SCH ×2 (06:44→18:33)
[2017-05-17] MEDS: Docusate 100 MG CAP PO SCH ×2 (08:32→22:15)
[2017-05-17] MEDS: Multivitamin W/ Minerals 1 TAB PO SCH (08:32)
[2017-05-17] MEDS: metFORMIN 500 MG TAB PO SCH ×2 (08:32→17:32)
[2017-05-17] MEDS: Alogliptin Benzoate 25 MG TABLET PO SCH (08:32)
[2017-05-17] MEDS: Aspirin 81 mg Enteric Coated Tablet PO SCH (08:32)
[2017-05-17] MEDS: Enoxaparin Sodium 40 MG/0.4 ML SYRINGE SC SCH (08:33)
[2017-05-17] MEDS: Finasteride 5 MG TAB PO SCH (08:33)
[2017-05-17] MEDS: Famotidine 20 MG TAB PO SCH ×2 (08:33→22:15)
[2017-05-17] MEDS: Furosemide 40 MG TAB PO SCH (08:34)
[2017-05-17] MEDS: Melatonin 3 MG TAB PO SCH (22:14)
[2017-05-17] MEDS: Atorvastatin Calcium 10 MG TAB PO SCH (22:15)
[2017-05-17] MEDS: Lorazepam 1 MG TAB PO SCH (22:15)
[2017-05-18] MEDS: Levothyroxine Sodium 50 MCG TAB PO SCH (06:12)
[2017-05-18] MEDS: Mometasone Furoate 120 PUFF 220 MCG INH SCH ×2 (06:12→17:42)
[2017-05-18] MEDS: Docusate 100 MG CAP PO SCH ×2 (08:13→21:49)
[2017-05-18] MEDS: Multivitamin W/ Minerals 1 TAB PO SCH (08:14)
[2017-05-18] MEDS: Aspirin 81 mg Enteric Coated Tablet PO SCH (08:14)
[2017-05-18] MEDS: metFORMIN 500 MG TAB PO SCH ×2 (08:14→16:33)
[2017-05-18] MEDS: Finasteride 5 MG TAB PO SCH (08:14)
[2017-05-18] MEDS: Famotidine 20 MG TAB PO SCH ×2 (08:14→21:48)
[2017-05-18] MEDS: Furosemide 40 MG TAB PO SCH (08:14)
[2017-05-18] MEDS: Enoxaparin Sodium 40 MG/0.4 ML SYRINGE SC SCH (08:15)
[2017-05-18] MEDS: Alogliptin Benzoate 25 MG TABLET PO SCH (08:18)
--- NOTE | 2017-05-18 18:11 | PRG ---
DATE OF SERVICE: 05/18/2017 SUBJECTIVE: Mr. Drake is doing well. He is off his oxygen. He is doing well, tolerating therapy. OBJECTIVE: VITAL SIGNS: He is afebrile, heart rate is 85, respirations are 16, blood pressure is 111/73. CARDIOVASCULAR: S1, S2 plus. RESPIRATORY: Normal vesicular breath sounds. ABDOMEN: Soft, nontender, bowel sounds heard in all quadrants. EXTREMITIES: Without cyanosis or clubbing. Trace edema. IMPRESSION: 1. Coronary artery disease status post coronary artery bypass graft. 2. Resolving hypoxemia. He is now on room air. 3. Diabetes mellitus type 2. 4. Hypertension. 5. Dyslipidemia. 6. Improving deconditioning. PLAN: 1. Continue current medications. 2. Nutritional support. 3. A 1800 calorie heart healthy diet. 4. Continue physical therapy. 5. Monitor oxygen levels. 6. Discussed with Therapy and they stated that he is stable to go home on Thursday. He is to have outpatient follow with his primary care physician and his criminal research specialist. Discussed with the patient i n detail and all questions answered.
[2017-05-18] MEDS: Melatonin 3 MG TAB PO SCH (21:48)
[2017-05-18] MEDS: traMADol HCl 50 MG TAB PO PRN (21:48)
[2017-05-18] MEDS: Atorvastatin Calcium 10 MG TAB PO SCH (21:49)
[2017-05-18] MEDS: Lorazepam 1 MG TAB PO SCH (21:49)
[2017-05-19] MEDS: Mometasone Furoate 120 PUFF 220 MCG INH SCH ×2 (06:05→18:28)
[2017-05-19] MEDS: Levothyroxine Sodium 50 MCG TAB PO SCH (06:06)
[2017-05-19 06:25] VITALS: BMI 34.2
[2017-05-19] MEDS: Alogliptin Benzoate 25 MG TABLET PO SCH (08:17)
[2017-05-19] MEDS: Finasteride 5 MG TAB PO SCH (08:17)
[2017-05-19] MEDS: Enoxaparin Sodium 40 MG/0.4 ML SYRINGE SC SCH (08:17)
[2017-05-19] MEDS: Famotidine 20 MG TAB PO SCH ×2 (08:19→21:28)
[2017-05-19] MEDS: Aspirin 81 mg Enteric Coated Tablet PO SCH (08:19)
[2017-05-19] MEDS: Furosemide 40 MG TAB PO SCH (08:19)
[2017-05-19] MEDS: Multivitamin W/ Minerals 1 TAB PO SCH (08:19)
[2017-05-19] MEDS: Docusate 100 MG CAP PO SCH ×2 (08:19→21:28)
[2017-05-19] MEDS: metFORMIN 500 MG TAB PO SCH ×2 (08:19→16:59)
[2017-05-19] MEDS: HumaLOG 300 UNITS/3 ML VIAL SC PRN (12:01)
--- NOTE | 2017-05-19 13:36 | PRG ---
DATE OF SERVICE: 05/19/2017 SUBJECTIVE: Mr. Drake is doing well. Denies any complaints, resting comfortably, and tolerating phys ical therapy. He is off of his oxygen. OBJECTIVE: VITAL SIGNS: He is afebrile, heart rate is 67, respirations 20, oxygen saturation is 96%, blood pres sure 105/63. CARDIOVASCULAR SYSTEM: S1 and S2 plus. RESPIRATORY SYSTEM: Normal vesicular breath sounds. ABDOMEN: Soft, obese, nontender, bowel sounds are heard in all quadrants. EXTREMITIES: Trace edema. LABORATORY DATA: Blood sugars are 113, 102, 150, 101, 155. IMPRESSION: 1. Diabetes mellitus type 2. 2. Coronary artery disease status post coronary artery bypass graft. 3. Resolved hypoxemia. 4. Obesity. 5. Improving deconditioning. 6. Hypertension. 7. Dyslipidemia. PLAN: 1. Continue current medications. 2. Nutritional support. 3. Physical therapy. 4. Stable for discharge. Discharge meds done. He wants to leave early in the morning tomorrow. 5. Outpatient followup with his PCP, Dr. Hawkins. He apparently has an appointment next week. He is also to follow up with his soap press feeder, Dr. Rios, 1800 calorie heart healthy diet. Activity as to lerated.
[2017-05-19] MEDS: Atorvastatin Calcium 10 MG TAB PO SCH (21:27)
[2017-05-19] MEDS: Melatonin 3 MG TAB PO SCH (21:28)
[2017-05-19] MEDS: Lorazepam 1 MG TAB PO SCH (21:33)
[2017-05-20] MEDS: Levothyroxine Sodium 50 MCG TAB PO SCH (05:59)
[2017-05-20] MEDS: Mometasone Furoate 120 PUFF 220 MCG INH SCH (05:59)
[2017-05-20 08:20] VITALS: TEMP 97.7
[2017-05-20] MEDS: Alogliptin Benzoate 25 MG TABLET PO SCH (08:45)
[2017-05-20] MEDS: Aspirin 81 mg Enteric Coated Tablet PO SCH (08:45)
[2017-05-20] MEDS: Enoxaparin Sodium 40 MG/0.4 ML SYRINGE SC SCH (08:46)
[2017-05-20] MEDS: Multivitamin W/ Minerals 1 TAB PO SCH (08:46)
[2017-05-20] MEDS: Docusate 100 MG CAP PO SCH (08:46)
[2017-05-20] MEDS: Furosemide 40 MG TAB PO SCH (08:46)
[2017-05-20] MEDS: Finasteride 5 MG TAB PO SCH (08:46)
[2017-05-20] MEDS: Famotidine 20 MG TAB PO SCH (08:46)
[2017-05-20] MEDS: metFORMIN 500 MG TAB PO SCH (08:46)
[2017-05-20 12:30] VITALS: BP 153/91
--- NOTE | 2017-05-20 15:12 | DIS ---
DATE OF ADMISSION: 05/07/2017 DATE OF DISCHARGE: 05/20/2017 PRINCIPAL DIAGNOSES: 1. Coronary artery disease, status post coronary artery bypass grafting x4. 2. Resolved hypoxemia. 3. Dyslipidemia. 4. Hypertension. 5. Diabetes mellitus type 2. 6. Hypothyroidism. 7. Benign prostatic hypertrophy. 8. Lower extremity edema, requiring Lasix. COMPLICATIONS: None. ADVERSE REACTIONS: None. PROCEDURES: None. CONSULTATIONS: None. HOSPITAL COURSE: The patient was admitted on 05/07 after undergoing coronary artery bypass grafting. He has done well with therapy. He required oxygen, but with him using incentive spirometry and eunice ing his Lasix, he was tapered off his oxygen. He has been on room air for 3 days; he has been ambula ting without any issues. His leg swelling is still present, but it is trace. Laboratory values claudio ined unremarkable and his blood sugars were under control. Therapy deemed stable for him for dischar ge and to continue outpatient cardiac rehabilitation. He left early this morning. PHYSICAL EXAMINATION: VITAL SIGNS: This morning, heart rate was 67, respirations 16, oxygen saturation 95% and blood press ure is 142/70. CARDIOVASCULAR SYSTEM: S1 and S2 plus. RESPIRATORY SYSTEM: Normal vesicular breath sounds. ABDOMEN: Soft and nontender. Bowel sounds heard in all quadrants. EXTREMITIES: Without cyanosis or clubbing basically and trace edema lower extremities. LABORATORY DATA: Blood sugars were 101, 155, 88, 124 and 136. DISCHARGE MEDICATIONS: Amiodarone 200 mg b.i.d., Pepcid 20 mg b.i.d., fluticasone propionate 50 mcg inhalation b.i.d. He is to gargle after use Lasix 40 mg daily. These prescriptions were called into the pharmacy. The other medicines that he has at home already and he is to continue aspirin 81 mg d aily, finasteride 5 mg daily, Levoxyl 50 mcg daily, lorazepam 1 mg at bedtime p.r.n., melatonin 3 mg at bedtime, metformin 500 mg b.i.d., multivitamin 1 tablet daily, Januvia 50 mg daily and Tramadol 50 mg q.6 hours p.r.n. DISCHARGE INSTRUCTIONS: An 1800-calorie heart healthy ADA diet. Accu-Cheks with sliding scale cover age. He apparently has lispro at home. Activity as tolerated. Follow up with bus girl and his primary care physician within a weeks' time. He is to call us with any questions or concerns.
== END 2017-05-20 11:50 | disposition home or self-care (01) | DRG 949 ==
LOC: NAV ACUTE 18:19
PROVIDERS: ADMIT Internal Medicine; ATTEND Internal Medicine
DX: Z48.89 Encounter for other specified surgical aftercare (principal); J98.11 Atelectasis; E11.9 Type 2 diabetes mellitus without complications; I48.0 Paroxysmal atrial fibrillation; I10 Essential (primary) hypertension; D63.8 Anemia in other chronic diseases classified elsewhere; I25.10 Atherosclerotic heart disease of native coronary artery without angina pectoris; Z95.1 Presence of aortocoronary bypass graft; E78.5 Hyperlipidemia, unspecified; E03.9 Hypothyroidism, unspecified; N40.0 Benign prostatic hyperplasia without lower urinary tract symptoms; Z87.891 Personal history of nicotine dependence; Z88.8 Allergy status to other drugs, medicaments and biological substances; Z79.01 Long term (current) use of anticoagulants; Z79.84 Long term (current) use of oral hypoglycemic drugs; E66.9 Obesity, unspecified; Z68.34 Body mass index [BMI] 34.0-34.9, adult; R09.02 Hypoxemia
CPT/HCPCS: 36415; 36416; 71020; 80048; 83880; 85025; 87086; 90471; 90682; 94664; G0008; J1650; J7620; Q2036

== ENCOUNTER 2020-12-12 10:45 | Emergency (ER) | payer BC, MEDICARE | END 2020-12-12 12:30 | disposition home or self-care (01) | LOC: NAV ERS 10:45 | DX: S20.211A Contusion of right front wall of thorax, initial encounter (principal); S80.02XA Contusion of left knee, initial encounter; I10 Essential (primary) hypertension; E11.9 Type 2 diabetes mellitus without complications; E78.5 Hyperlipidemia, unspecified; W19.XXXA Unspecified fall, initial encounter | CPT/HCPCS: 71046 ==

== ENCOUNTER 2022-01-24 02:47 | Emergency (ER) | payer BC, MEDICARE, OTHER ==
[2022-01-24 03:16] LABS: #Eosinphils 0.3 thou/uL (0.0-0.7); #Lymphocytes 2.3 thou/uL (1.20-3.40); #Monocytes 0.9 thou/uL (0.11-0.59); #Neutrophils 4.6 thou/uL (1.40-6.50); %Basophils 0.6 % (0.0-1.0); %Eosinophils 3.1 % (0.0-10.0); %Lymphocytes 28.8 % (21.0-51.0); %Monocytes 10.6 % (0.0-10.0); %Neutrophils 56.9 % (42.0-75.0); Hemoglobin 14.4 g/dL (14.0-18.0); Mean Corpuscular HGB CONC 30.7 g/dL (32.0-36.0); Mean Corpuscular Hemoglobin 31.3 pg (27.0-31.0); Mean Platelet Volume 7.7 fL (7.4-10.4); Platelet Count 218 thou/uL (130-400); RBC Distribution Width 13.9 % (11.5-14.5); Red Blood Cell (RBC) Count 4.59 mill/uL (4.70-6.10); White Blood Cell (WBC) Count 8.1 thou/uL (4.8-10.8)
[2022-01-24 03:30] LABS: ALT (SGPT) 13 U/L (8-55); AST (SGOT) 43 U/L (5-34); Albumin 3.6 g/dL (3.4-4.8); Alkaline Phosphatase 81 U/L (40-110); Anion Gap 16 mmol/L (10-20); BUN (Urea Nitrogen) 22 mg/dL (8.4-25.7); Bilirubin, Total 0.4 mg/dL (0.2-1.2); Calc. Creatinine Clearance 0 mL/min (70-130); Calcium 9.7 mg/dL (7.8-10.44); Carbon Dioxide 30 mmol/L (23-31); Chloride 103 mmol/L (98-107); Estimated GFR 55; Globulin 2.8 g/dL (2.4-3.5); Glucose 167 mg/dL (83-110); Potassium 3.8 mmol/L (3.5-5.1); Protein, Total 6.4 g/dL (5.8-8.1); Sodium 145 mmol/L (136-145)
[2022-01-24 04:08] LABS: SARS-CoV-2 NAA Rapid Test Not Detected (NotDetected)
[2022-01-24] MEDS ORDERED: Enoxaparin Sodium 60 MG/0.6 ML SYRINGE ONE (04:44)
[2022-01-24 05:01] LABS: Prothrombin Time 13.1 sec (12.0-14.7)
[2022-01-24 05:02] LABS: PTT 34.2 sec (22.9-36.1)
[2022-01-24] MEDS ORDERED: Sodium Chloride 0.9% 500 ML ONE (05:33)
[2022-01-24 05:39] LABS: CKMB 4.7 ng/mL (0-6.6)
[2022-01-24] MEDS ORDERED: Aspirin Chewable 81 MG TAB ONE (08:03)
[2022-01-24] MEDS ORDERED: Iopamidol 370 76% 100 ML VIAL ONE (09:00)
== END 2022-01-24 08:40 | disposition short-term general hospital (02) ==
LOC: NAV ERS 02:47
DX: I48.91 Unspecified atrial fibrillation (principal); R09.02 Hypoxemia; R77.8 Other specified abnormalities of plasma proteins; Z20.822 Contact with and (suspected) exposure to COVID-19; I10 Essential (primary) hypertension; E78.5 Hyperlipidemia, unspecified; E11.9 Type 2 diabetes mellitus without complications; Z79.84 Long term (current) use of oral hypoglycemic drugs; Z79.899 Other long term (current) drug therapy
CPT/HCPCS: 71045; 71275; 74174; 80053; 82553; 83605; 83880; 84484; 85025; 85379; 85610; 85730; 93005; 94760; 96360; 96372; J1650; J7030; Q9967; U0002

== ENCOUNTER 2024-02-24 09:50 | Inpatient (IN) | payer BC, MEDICARE ==
[2024-02-24] MEDS ORDERED: Bisacodyl 5 MG TAB PO PRN (13:58)
[2024-02-24] MEDS ORDERED: Ondansetron ODT 4 MG TAB PO PRN (13:58)
[2024-02-24] MEDS ORDERED: Phenazopyridine HCl 95 MG TAB PO PRN (14:18)
[2024-02-24] MEDS: Carbidopa/Levodopa 25-100 mg Tablet PO SCH (14:37)
[2024-02-24] MEDS: Dronedarone HCl 400 MG TAB PO SCH (16:13)
[2024-02-24] MEDS: Acetaminophen 325 MG TAB PO PRN (16:13)
[2024-02-24] MEDS ORDERED: Dextrose 50% Abboject 50 ML SYRINGE SLOW IVP PRN (16:21)
[2024-02-24] MEDS ORDERED: Insulin Lispro 100 UNIT/ML 10 ML VIAL SC PRN (16:21)
[2024-02-24] MEDS ORDERED: Glucagon 1 MG/ML KIT IM PRN (16:21)
[2024-02-24] MEDS: Rosuvastatin 20 MG TAB PO SCH (19:55)
[2024-02-24] MEDS: Famotidine 20 MG TAB PO SCH (19:55)
[2024-02-24] MEDS: DULoxetine 30 MG CAP PO SCH (19:56)
[2024-02-25] MEDS: Levothyroxine Sodium 88 MCG TAB PO SCH (05:39)
[2024-02-25 06:07] LABS: #Basophils 0.1 thou/uL (0.0-0.2); #Eosinphils 0.2 thou/uL (0.0-0.7); #Lymphocytes 1.9 thou/uL (1.20-3.40); #Monocytes 0.7 thou/uL (0.11-0.59); #Neutrophils 5.4 thou/uL (1.40-6.50); %Basophils 0.8 % (0.0-1.0); %Eosinophils 2.4 % (0.0-10.0); %Lymphocytes 23.2 % (21.0-51.0); %Monocytes 8.6 % (0.0-10.0); %Neutrophils 65.1 % (42.0-75.0); Hematocrit 37.8 % (42.0-52.0); Hemoglobin 11.5 g/dL (14.0-18.0); Mean Corpuscular HGB CONC 30.5 g/dL (32.0-36.0); Mean Corpuscular Hemoglobin 28.7 pg (27.0-31.0); Mean Corpuscular Volume 94.1 fl (78.0-98.0); Mean Platelet Volume 7.6 fL (7.4-10.4); Platelet Count 186 10x3/uL (130-400); RBC Distribution Width 14.4 % (11.5-14.5); Red Blood Cell (RBC) Count 4.02 mill/uL (4.70-6.10); White Blood Cell (WBC) Count 8.3 10x3/uL (4.8-10.8)
[2024-02-25 06:23] LABS: ALT (SGPT) Less than 7 U/L (8-55); AST (SGOT) 13 U/L (5-34); Albumin 2.6 g/dL (3.4-4.8); Alkaline Phosphatase 54 U/L (40-110); Anion Gap 10 mmol/L (10-20); BUN (Urea Nitrogen) 16 mg/dL (8.4-25.7); Bilirubin, Total 0.3 mg/dL (0.2-1.2); Calc. Creatinine Clearance 98 mL/min (70-130); Calcium 8.5 mg/dL (7.8-10.44); Carbon Dioxide 35 mmol/L (23-31); Chloride 100 mmol/L (98-107); Estimated GFR 84; Globulin 2.9 g/dL (2.4-3.5); Glucose 148 mg/dL (83-110); Protein, Total 5.5 g/dL (5.8-8.1); Sodium 141 mmol/L (136-145)
[2024-02-25] MEDS: Finasteride 5 MG TAB PO SCH (08:23)
[2024-02-25] MEDS: Empagliflozin 10 MG TAB PO SCH (08:23)
[2024-02-25] MEDS: Multivitamin W/ Minerals 1 TAB PO SCH (08:23)
[2024-02-25] MEDS: Fenofibrate Nanocrystallized 145 MG TAB PO SCH (08:23)
[2024-02-25] MEDS: Aspirin 81 mg Enteric Coated Tablet PO SCH (08:23)
[2024-02-26] MEDS: Insulin Lispro 100 UNIT/ML 10 ML VIAL SC PRN (16:41)
[2024-02-29] MEDS: Senokot S 8.6-50 MG TAB PO PRN (10:24)
[2024-03-01] MEDS: Dronedarone HCl 400 MG TAB PO SCH (07:24)
[2024-03-03 05:50] LABS: #Eosinphils 0.1 thou/uL (0.0-0.7); #Lymphocytes 2.2 thou/uL (1.20-3.40); #Monocytes 0.7 thou/uL (0.11-0.59); #Neutrophils 4.3 thou/uL (1.40-6.50); %Basophils 0.6 % (0.0-1.0); %Eosinophils 1.9 % (0.0-10.0); %Lymphocytes 30.3 % (21.0-51.0); %Neutrophils 58.2 % (42.0-75.0); Hematocrit 39.2 % (42.0-52.0); Hemoglobin 11.8 g/dL (14.0-18.0); Mean Corpuscular Hemoglobin 28.2 pg (27.0-31.0); Mean Corpuscular Volume 93.9 fl (78.0-98.0); Platelet Count 175 10x3/uL (130-400); RBC Distribution Width 14.4 % (11.5-14.5); Red Blood Cell (RBC) Count 4.17 mill/uL (4.70-6.10); White Blood Cell (WBC) Count 7.4 10x3/uL (4.8-10.8)
[2024-03-03 06:06] LABS: ALT (SGPT) Less than 7 U/L (8-55); AST (SGOT) 12 U/L (5-34); Albumin 2.7 g/dL (3.4-4.8); Alkaline Phosphatase 48 U/L (40-110); Anion Gap 10 mmol/L (10-20); BUN (Urea Nitrogen) 21 mg/dL (8.4-25.7); Bilirubin, Total 0.3 mg/dL (0.2-1.2); Calc. Creatinine Clearance 97 mL/min (70-130); Calcium 8.7 mg/dL (7.8-10.44); Carbon Dioxide 32 mmol/L (23-31); Chloride 103 mmol/L (98-107); Estimated GFR 82; Glucose 112 mg/dL (83-110); Potassium 4.2 mmol/L (3.5-5.1); Protein, Total 5.7 g/dL (5.8-8.1); Sodium 141 mmol/L (136-145)
[2024-03-04] MEDS: Acetaminophen 325 MG TAB PO PRN (05:55)
[2024-03-08 06:47] VITALS: BMI 32.9
[2024-03-10 05:48] LABS: #Eosinphils 0.1 thou/uL (0.0-0.7); #Monocytes 0.5 thou/uL (0.11-0.59); #Neutrophils 3.4 thou/uL (1.40-6.50); %Basophils 0.6 % (0.0-1.0); %Eosinophils 2.1 % (0.0-10.0); %Lymphocytes 33.1 % (21.0-51.0); %Monocytes 8.8 % (0.0-10.0); %Neutrophils 55.5 % (42.0-75.0); Hematocrit 39.5 % (42.0-52.0); Hemoglobin 11.8 g/dL (14.0-18.0); Mean Corpuscular HGB CONC 29.9 g/dL (32.0-36.0); Mean Corpuscular Hemoglobin 27.8 pg (27.0-31.0); Mean Platelet Volume 6.5 fL (7.4-10.4); Platelet Count 168 10x3/uL (130-400); RBC Distribution Width 14.3 % (11.5-14.5); Red Blood Cell (RBC) Count 4.24 mill/uL (4.70-6.10); White Blood Cell (WBC) Count 6.1 10x3/uL (4.8-10.8)
[2024-03-10 06:13] LABS: ALT (SGPT) Less than 7 U/L (8-55); AST (SGOT) 16 U/L (5-34); Albumin 2.9 g/dL (3.4-4.8); Alkaline Phosphatase 48 U/L (40-110); Anion Gap 10 mmol/L (10-20); BUN (Urea Nitrogen) 17 mg/dL (8.4-25.7); Bilirubin, Total 0.4 mg/dL (0.2-1.2); Calc. Creatinine Clearance 109 mL/min (70-130); Calcium 8.9 mg/dL (7.8-10.44); Carbon Dioxide 32 mmol/L (23-31); Chloride 104 mmol/L (98-107); Estimated GFR 87; Glucose 113 mg/dL (83-110); Protein, Total 5.9 g/dL (5.8-8.1); Sodium 142 mmol/L (136-145)
[2024-03-13 06:36] VITALS: BMI 33.0
[2024-03-14 07:45] VITALS: BP 122/82; TEMP 98
== END 2024-03-14 10:45 | disposition home or self-care (01) | DRG 948 ==
LOC: NAV ACUTE 12:34
PROVIDERS: ADMIT Student in an Organized Health Care Education/Training Program; ATTEND Family Medicine
DX: R53.81 Other malaise (principal); I25.10 Atherosclerotic heart disease of native coronary artery without angina pectoris; E03.9 Hypothyroidism, unspecified; E11.9 Type 2 diabetes mellitus without complications; N40.1 Benign prostatic hyperplasia with lower urinary tract symptoms; M19.90 Unspecified osteoarthritis, unspecified site; G47.33 Obstructive sleep apnea (adult) (pediatric); R31.9 Hematuria, unspecified; G20.A1 Parkinson's disease without dyskinesia, without mention of fluctuations; Z95.1 Presence of aortocoronary bypass graft; Z90.89 Acquired absence of other organs; Z98.890 Other specified postprocedural states; Z98.49 Cataract extraction status, unspecified eye; Z87.891 Personal history of nicotine dependence; Z88.5 Allergy status to narcotic agent; Z88.8 Allergy status to other drugs, medicaments and biological substances
CPT/HCPCS: 36415; 36416; 80053; 85025; J1815

== ENCOUNTER 2024-04-22 09:24 | Emergency (ER) | payer MEDICARE, OTHER | END 2024-04-22 10:23 | disposition home or self-care (01) | LOC: NAV ERS 09:24 | DX: K56.41 Fecal impaction (principal); I12.9 Hypertensive chronic kidney disease with stage 1 through stage 4 chronic kidney disease, or unspecified chronic kidney disease; N18.4 Chronic kidney disease, stage 4 (severe); E11.22 Type 2 diabetes mellitus with diabetic chronic kidney disease; Z79.899 Other long term (current) drug therapy; Z79.84 Long term (current) use of oral hypoglycemic drugs; Z79.82 Long term (current) use of aspirin | CPT/HCPCS: 99283 ==

== ENCOUNTER 2024-08-07 13:41 | Emergency (ER) | payer MEDICARE, OTHER ==
[2024-08-07 14:13] LABS: #Lymphocytes 0.6 thou/uL (1.20-3.40); #Monocytes 0.7 thou/uL (0.11-0.59); #Neutrophils 9.9 thou/uL (1.40-6.50); %Basophils 0.3 % (0.0-1.0); %Lymphocytes 5.3 % (21.0-51.0); %Monocytes 6.5 % (0.0-10.0); Hematocrit 44.3 % (42.0-52.0); Hemoglobin 13.3 g/dL (14.0-18.0); Mean Corpuscular HGB CONC 29.9 g/dL (32.0-36.0); Mean Corpuscular Volume 90.4 fl (78.0-98.0); Mean Platelet Volume 6.5 fL (7.4-10.4); Platelet Count 192 10x3/uL (130-400); White Blood Cell (WBC) Count 11.3 10x3/uL (4.8-10.8)
[2024-08-07 14:22] LABS: INR-International Normal Ratio 1.2; Prothrombin Time 15.4 sec (12.0-14.7)
[2024-08-07 14:23] LABS: PTT 37.9 sec (22.9-36.1)
[2024-08-07] MEDS ORDERED: cefTRIAXone (ROCEPHIN) 1 GM VIAL ONE (14:23)
[2024-08-07] MEDS ORDERED: Sodium Chloride 0.9% 100 ML ONE (14:23)
[2024-08-07] MEDS ORDERED: Sodium Chloride 0.9% 1,000 ML ONE (14:23)
[2024-08-07] MEDS ORDERED: Ibuprofen 800 MG TAB ONE (14:23)
[2024-08-07 14:35] LABS: ALT (SGPT) Less than 4 U/L (Less than 45); AST (SGOT) 17 U/L (11-34); Albumin 3.2 g/dL (3.1-4.5); Alkaline Phosphatase 52 U/L (40-110); Anion Gap 13 mmol/L (10-20); BUN (Urea Nitrogen) 22 mg/dL (8.4-25.7); Bilirubin, Total 0.7 mg/dL (0.3-1.2); Calc. Creatinine Clearance 0 mL/min (70-130); Calcium 8.7 mg/dL (7.8-10.44); Carbon Dioxide 30 mmol/L (23-31); Chloride 97 mmol/L (98-107); Estimated GFR 79; Globulin 3.1 g/dL (2.4-3.5); Glucose 171 mg/dL (83-110); Lipase 8 U/L (8-78); Protein, Total 6.3 g/dL (5.8-8.1); Sodium 136 mmol/L (136-145)
[2024-08-07 15:12] LABS: Bilirubin Moderate (Negative); Blood, Urine Large (Negative); Glucose, Urine (Dipstick) Negative (Negative); Ketone, Urine Trace mg/dL (Negative); Leukocyte Small (Negative); Nitrite Positive (Negative); Protein, Urine (Dipstick) > or equal to 300 mg/dL (Neg-Trace); pH, Urine 6.5 (5.0-9.0)
[2024-08-07 15:17] LABS: Clarity Cloudy (Clear); RBC/HPF Greater than 50 HPF (0-3)
[2024-08-07 15:19] LABS: Bacteria/HPF Rare-Few HPF (None Seen); CAUTI Indications for Culture Acute Hematuria
[2024-08-07 15:20] LABS: Urine Culture Reflex Yes Yes
== END 2024-08-07 17:19 | disposition short-term general hospital (02) ==
LOC: NAV ERS 13:41
DX: N39.0 Urinary tract infection, site not specified (principal); R41.82 Altered mental status, unspecified; I10 Essential (primary) hypertension; E78.5 Hyperlipidemia, unspecified; E11.9 Type 2 diabetes mellitus without complications; Z79.84 Long term (current) use of oral hypoglycemic drugs; Z79.82 Long term (current) use of aspirin
CPT/HCPCS: 36415; 51702; 70450; 71045; 80053; 81001; 83605; 83690; 85025; 85610; 85730; 87040; 87077; 87086; 87149; 87186; 93005; 96361; 96365; J0696; J7030

== ENCOUNTER 2025-06-17 20:41 | Emergency (ER) | payer MEDICARE ==
[~2025-06-17 20:41] MED LIST: EPINEPHRINE ONE; SODIUM CHLORIDE ONE
[2025-06-17] MEDS ORDERED: KETAMINE 100 MG/ML (5ML VIAL) ONE (20:56)
[2025-06-17 21:11] LABS: Hematocrit 39.3 % (42.0-52.0); Hemoglobin 12.5 g/dL (14.0-18.0); Mean Corpuscular Hemoglobin 29.8 pg (27.0-31.0); Mean Corpuscular Volume 93.5 fl (78.0-98.0); Platelet Count 207 10x3/uL (130-400); Red Blood Cell (RBC) Count 4.20 mill/uL (4.70-6.10); White Blood Cell (WBC) Count 11.2 10x3/uL (4.8-10.8)
[2025-06-17 21:18] LABS: ALT (SGPT) 37 U/L (Less than 45); AST (SGOT) 385 U/L (11-34); Albumin 2.6 g/dL (3.1-4.5); Alkaline Phosphatase 215 U/L (40-110); Anion Gap 28 mmol/L (10-20); BUN (Urea Nitrogen) 35 mg/dL (8.4-25.7); Bilirubin, Total 0.6 mg/dL (0.3-1.2); Calc. Creatinine Clearance 0 mL/min (70-130); Calcium 7.4 mg/dL (7.8-10.44); Carbon Dioxide 21 mmol/L (23-31); Chloride 101 mmol/L (98-107); Globulin 2.6 g/dL (2.4-3.5); Glucose 319 mg/dL (83-110); Potassium 4.7 mmol/L (3.5-5.1); Sodium 145 mmol/L (136-145)
[2025-06-17 21:20] LABS: Troponin I 0.036 ng/mL (< 0.028)
[2025-06-17 21:24] LABS: Bicarbonate (HCO3v) 23.6 mmol/L (22.0-28.0); CO2 Tension (PvCO2) 84.5 mmHg (42.0-51.0); Calcium, Ionized 1.08 mmol/L (1.15-1.33); Chloride 105 mmol/L (98-107); Hemoglobin - Calc 13.4 g/dL (14.0-18.0); Platelet Adequacy Comment Appears Adequate; Potassium 4.5 mmol/L (3.5-5.1); Sodium 140 mmol/L (138-145); T. Carbon Dioxide 26.2 mmol/L (22.0-28.0); vO2 Saturation-calc 93.6 % (60.0-85.0)
[2025-06-17 21:30] LABS: INR-International Normal Ratio 1.9; PTT 41.1 sec (22.9-36.1); Prothrombin Time 21.5 sec (12.0-14.7)
[2025-06-17 21:38] LABS: D-Dimer Test 2.47 mcg/mL (0.27-0.43)
== END 2025-06-17 22:03 | disposition short-term general hospital (02) ==
LOC: NAV ERS 20:41
DX: I46.9 Cardiac arrest, cause unspecified (principal); I12.9 Hypertensive chronic kidney disease with stage 1 through stage 4 chronic kidney disease, or unspecified chronic kidney disease; E11.22 Type 2 diabetes mellitus with diabetic chronic kidney disease; N18.4 Chronic kidney disease, stage 4 (severe)
CPT/HCPCS: 71045; 80053; 82330; 82435; 82803; 83605; 83880; 84132; 84295; 84484; 85014; 85025; 85379; 85610; 85730; 93005; 94760; J2250; J3490; 36415; 99292